=== PATIENT | male | born 1995 | race Caucasian/White ===

== ENCOUNTER 2017-10-29 08:18 | Emergency (ER) | payer SELFPAY ==
[2017-10-29] MEDS: KETOROLAC 60 MG/2 ML INJ. IM (09:23)
== END 2017-10-29 09:27 | disposition home or self-care (01) ==
LOC: ER 08:18
DX: R51 Headache (principal); R04.0 Epistaxis; Z87.891 Personal history of nicotine dependence
CPT/HCPCS: 96372; 99283; J1885